=== PATIENT | male | born 1950 | race Caucasian/White ===

== ENCOUNTER 2018-03-24 08:55 | Inpatient (IN) ==
[2018-03-24] MEDS ORDERED: SODIUM CHLORIDE 0.9% 1,000 ML IV STA ×2 (09:11→10:12)
[2018-03-24] MEDS ORDERED: ACETAMINOPHEN 500 MG TABLET PO STA (09:12)
[2018-03-24 09:18] LABS: Basophils % 0.3 % (0.0-0.8); Eosinophils # 0.1 10*3/uL (0.0-0.87); Eosinophils % 1.6 % (0.00-10.9); Hematocrit 43.1 VOL% (42.0-52.0); Hemoglobin 14.2 GM/DL (14.0-18.0); Immature Granulocytes % 0.2 %; Immature Granulocytes Absolute 0.01 #; Lymphocytes # 0.5 10*3/uL (1.4-4.0); Lymphocytes % 7.9 % (21.2-54.2); Mean Corpuscular HGB Conc 32.9 GM/DL (32-36); Mean Corpuscular Hemoglobin 31 PG (27-34); Mean Corpuscular Volume 94.7 FL (87-102); Mean Platelet Volume 9.6 FL (9.6-12.0); Monocytes # 0.3 10*3/uL (0.11-0.8); Monocytes % 5.3 % (1.7-12.7); Neutrophils # 5.3 10*3/uL (1.4-7.4); Neutrophils % 84.7 % (38.7-73.9); Platelet Count 149 T/CUMM (130-400); Red Blood Count 4.55 MC/CUMM (3.8-5.5); White Blood Count 6.2 T/CUMM (4-12)
[2018-03-24 09:27] LABS: PT Patient Result 10.3 SECS; Partial Thromboplastin Time 24.3 SECS (0-40)
[2018-03-24 09:31] LABS: Apearance,Urine CLEAR (Clear); Bilirubin,Urine Negative (Negative); Blood, Urine Negative (Negative); Glucose,Urine (UA) >=500 mg/dL (Negative); Ketones,Urine Negative (Negative); Mucus,Urine Occasional /LPF (Occasional); Nitrite,Urine Negative (Negative); Protein,Urine Negative; Urine Color Yellow (Yellow); Urine Specific Gravity 1.015 (1.001-1.035); Urine Urobilinogen < 2.0 EU/DL (0.2-1.0); WBC,Urine <1 /HPF (0-6)
[2018-03-24 09:56] LABS: Alanine Aminotransferase 54 U/L (16-61); Albumin 3.7 G/DL (3.4-5.0); Alkaline Phosphatase 73 U/L (45-117); Aspartate Amino Transferase 40 U/L (0-37); Blood Urea Nitrogen 28 MG/DL (7-18); Calcium 8.7 MG/DL (8.5-10.1); Glucose 272 MG/DL (74-106); Osmolality,Calculated 283.2 MOS/KG (273-304); Potassium 4.9 MMOL/L (3.5-5.1); Sodium 134 MMOL/L (136-145)
[2018-03-24] MEDS ORDERED: LEVOFLOXACIN INJ 500 MG in PREMIX 1 EACH IV STA (10:12)
[2018-03-24] MEDS ORDERED: SODIUM CHLORIDE 0.9% 1,000 ML IV ONE (11:28)
[2018-03-24] MEDS: SODIUM CHLORIDE 0.9% 1,000 ML IV SCH ×2 (12:00→20:56)
[2018-03-24] MEDS ORDERED: GLUCAGON 1 MG VIAL IM PRN (12:32)
[2018-03-24] MEDS ORDERED: DEXTROSE 50% 25 GM/50 ML VIAL IV PRN (12:32)
[2018-03-24] MEDS: INSULIN LISPRO 100 UNIT/ML SUBCUT SCH ×2 (17:45→20:56)
[2018-03-25] MEDS: SODIUM CHLORIDE 0.9% 1,000 ML IV SCH (04:32)
[2018-03-25 06:59] LABS: Eosinophils # 0.1 10*3/uL (0.0-0.87); Eosinophils % 1.9 % (0.00-10.9); Hematocrit 38.8 VOL% (42.0-52.0); Hemoglobin 12.4 GM/DL (14.0-18.0); Immature Granulocytes % 0.6 %; Immature Granulocytes Absolute 0.04 #; Mean Corpuscular Hemoglobin 31 PG (27-34); Mean Platelet Volume 9.7 FL (9.6-12.0); Monocytes # 0.5 10*3/uL (0.11-0.8); Monocytes % 6.9 % (1.7-12.7); Neutrophils # 5.1 10*3/uL (1.4-7.4); Neutrophils % 75.6 % (38.7-73.9); Platelet Count 133 T/CUMM (130-400); Red Cell Distribution Width 13.2 % (9.3-17.3); White Blood Count 6.8 T/CUMM (4-12)
[2018-03-25 07:34] LABS: Albumin 3.1 G/DL (3.4-5.0); Bilirubin,Total 0.9 MG/DL (0.2-1.0); Calcium 8.1 MG/DL (8.5-10.1); Osmolality,Calculated 285.3 MOS/KG (273-304); Potassium 4.7 MMOL/L (3.5-5.1); Total Protein 6.3 G/DL (6.4-8.3)
[2018-03-25] MEDS: INSULIN LISPRO 100 UNIT/ML SUBCUT SCH ×4 (09:38→20:14)
[2018-03-25] MEDS: LEVOFLOXACIN INJ 750 MG in PREMIX 1 EACH IV SCH (09:40)
[2018-03-25] MEDS: PANTOPRAZOLE 20 MG TABLET PO SCH (09:40)
[2018-03-26] MEDS ORDERED: ACETAMINOPHEN 325 MG TABLET PO PRN (00:55)
[2018-03-26] MEDS ORDERED: IBUPROFEN 600 MG TABLET PO PRN (00:57)
[2018-03-26 07:30] VITALS: BP 131/77
[2018-03-26 07:57] LABS: Basophils % 0.4 % (0.0-0.8); Eosinophils # 0.2 10*3/uL (0.0-0.87); Eosinophils % 2.7 % (0.00-10.9); Hematocrit 42.1 VOL% (42.0-52.0); Hemoglobin 13.4 GM/DL (14.0-18.0); Immature Granulocytes % 0.5 %; Immature Granulocytes Absolute 0.03 #; Lymphocytes # 1.1 10*3/uL (1.4-4.0); Lymphocytes % 19.3 % (21.2-54.2); Mean Corpuscular HGB Conc 31.8 GM/DL (32-36); Mean Corpuscular Hemoglobin 31 PG (27-34); Mean Platelet Volume 9.5 FL (9.6-12.0); Monocytes # 0.4 10*3/uL (0.11-0.8); Monocytes % 6.5 % (1.7-12.7); Neutrophils # 3.9 10*3/uL (1.4-7.4); Neutrophils % 70.6 % (38.7-73.9); Platelet Count 141 T/CUMM (130-400); Red Blood Count 4.34 MC/CUMM (3.8-5.5); Red Cell Distribution Width 12.9 % (9.3-17.3); White Blood Count 5.6 T/CUMM (4-12)
[2018-03-26 08:31] LABS: Albumin 3.3 G/DL (3.4-5.0); Bilirubin,Direct 0.13 MG/DL (0.0-0.20); Bilirubin,Indirect 0.5 MG/DL (0.0-1.0); Bilirubin,Total 0.6 MG/DL (0.2-1.0); Potassium 4.3 MMOL/L (3.5-5.1)
[2018-03-26] MEDS ORDERED: ATORVASTATIN 40 MG TABLET PO SCH (09:00)
[2018-03-26] MEDS: PANTOPRAZOLE 20 MG TABLET PO SCH (09:28)
[2018-03-26] MEDS: LEVOFLOXACIN INJ 750 MG in PREMIX 1 EACH IV SCH (09:29)
[2018-03-26] MEDS: INSULIN LISPRO 100 UNIT/ML SUBCUT SCH (09:37)
== END 2018-03-26 11:15 | disposition home or self-care (01) | DRG 871 ==
LOC: EDBD → N.ED 08:55 → N.EDINP 11:06 → N.5E 12:50
PROVIDERS: ADMIT Internal Medicine; ATTEND Internal Medicine